=== PATIENT | female | born 1940 | race Caucasian/White ===

== ENCOUNTER 2017-09-13 14:53 | Emergency (ER) | payer MEDICARE ==
--- NOTE | 2017-09-13 15:10 | ER Document Report ---
ED General - General Chief Complaint: Facial Injury Stated Complaint: FALL CONTUSION Time Seen by Provider: 09/13/17 14:58 TRAVEL OUTSIDE OF THE [place] IN LAST 30 DAYS: No - HPI Notes: Patient is a 77-year-old female with a history of diabetes, CKD, hypertension who presents the ED complaining of left-sided head/eye pain, swelling, bruising s/p fall [employer]. Patient states that she was in the shower when she slipped and hit her head off of the corner of the bench. Patient states that she did not lose consciousness or have any nausea/vomiting. Patient states that she feels well otherwise and was ambulating without any difficulties. Spouse states that she is at her baseline with her mentation and her speech. Patient states that she she does not have a global headache, only pain localized to the area of concern. Patient is on Eliquis once daily. Denies any fever, neck pain, changes in speech/mentation/hearing, URI, sore throat, chest pain, palpitations , syncope, cough, shortness of breath, wheeze, dyspnea, abdominal pain, nausea/ vomiting/diarrhea, urinary retention, dysuria, hematuria, loss of control of bowel or bladder, numbness/tingling, saddle anesthesia, muscle paralysis/ weakness, or rash. - Related Data Allergies/Adverse Reactions: acetylcysteine [From Mucomyst] Allergy (Verified 09/13/17 15:33) albuterol Allergy (Verified 09/13/17 15:33) amoxicillin Allergy (Verified 09/13/17 15:33) budesonide Allergy (Verified 09/13/17 15:33) ciprofloxacin [From Cipro] Allergy (Verified 09/13/17 15:33) clotrimazole [From Lotrimin] Allergy (Verified 09/13/17 15:33) colesevelam [From WelChol] Allergy (Verified 09/13/17 15:34) erythromycin base Allergy (Verified 09/13/17 15:33) fluticasone [From Advair Diskus] Allergy (Verified 09/13/17 15:33) gabapentin Allergy (Verified 09/13/17 15:33) latex Allergy (Verified 09/13/17 15:33) levalbuterol [From Xopenex] Allergy (Verified 09/13/17 15:34) Penicillins Allergy (Verified 09/13/17 15:33) salmeterol [From Advair Diskus] Allergy (Verified 09/13/17 15:33) Home Medications: Current Home Medications Levothyroxine Sodium [Synthroid] 25 mcg PO DAILY 09/13/17 [History] Pregabalin [Lyrica] 150 mg PO DAILY 09/13/17 [History] Past Medical History - Social History Smoking Status: Never Smoker Chew tobacco use (# tins/day): No Drug Abuse: None Family History: Reviewed & Not Pertinent Patient has suicidal ideation: No Patient has homicidal ideation: No Renal/ Medical History: Denies: Hx Peritoneal Dialysis Review of Systems - Review of Systems Notes: REVIEW OF SYSTEMS: CONSTITUTIONAL : Denies fever, chills, or sweats. Denies recent illness. EENT: see hpi. CARDIOVASCULAR: Denies chest pain. Denies palpitations or racing or irregular heart beat. Denies ankle edema. RESPIRATORY: Denies cough, cold, or chest congestion. Denies shortness of breath, difficulty breathing, or wheezing. GASTROINTESTINAL: Denies abdominal pain or distention. Denies nausea, vomiting , or diarrhea. Denies blood in vomitus, stools, or per rectum. Denies black, tarry stools. Denies constipation. GENITOURINARY: Denies difficulty urinating, painful urination, burning, frequency, blood in urine, or discharge. MUSCULOSKELETAL: Denies back or neck pain or stiffness. Denies joint pain or swelling. SKIN: see hpi NEUROLOGICAL: Denies confusion or altered mental status. Denies passing out or loss of consciousness. Denies dizziness or lightheadedness. Denies headache. Denies weakness or paralysis or loss of use of either side. Denies problems with gait or speech. Denies sensory loss, numbness, or tingling. Denies seizures. PSYCHIATRIC: Denies anxiety or stress. Denies depression, suicidal ideation, or homicidal ideation. ALL OTHER SYSTEMS REVIEWED AND NEGATIVE. Dictation was performed using [employer] voice recognition software Physical Exam - Vital signs Vitals: Temp Pulse Resp BP Pulse Ox 97.9 F 91 18 126/74 H 95 09/13/17 15:32 09/13/17 15:32 09/13/17 15:32 09/13/17 15:32 09/13/17 15:32 Notes: PHYSICAL EXAMINATION: GENERAL: Well-appearing, well-nourished and in no acute distress. A&Ox4 HEAD: + swelling and ecchymosis noted to the left frontal cranial area. + tenderness to palp. EYES: Rt eye: Pupil equal round and reactive to light, extraocular movements intact, sclera anicteric, conjunctiva are normal. Lt eye completely swollen and ecchymotic with tenderness to palp of the superior orbit and eye lid. Unable to open to visualize left pupil. ENT: EAC clear b/l. TM's intact b/l without erythema, fluid, or perforation. Nares patent and without discharge. oropharynx clear without exudates. No tonsilar hypertrophy or erythema. Moist mucous membranes. No sinus tenderness. No hemotympanum/CSF discharge. NECK: Normal range of motion, supple without lymphadenopathy. No rigidity. No midline tenderness. Spurling negative. NEXUS negative. Chest: No flail chest. equal rise/fall. Non-tender LUNGS: Breath sounds clear to auscultation bilaterally and equal. No wheezes rales or rhonchi. HEART: Regular rate and rhythm without murmurs, rubs, gallops. ABDOMEN: Soft, nontender, nondistended abdomen. No guarding, no rebound. No masses appreciated. Normal bowel sounds present. No CVA tenderness bilaterally. Musculoskeletal: Ext b/l: FROM to passive/active. Strength 5+/5. No deficits noted. No bony tenderness of extremities. Back: FROM to passive/active. Strength 5+/5. No vertebral point tenderness, stepoffs, or deformities. No other bony tenderness or ecchymosis. Extremities: No cyanosis, clubbing, or edema b/l. Peripheral pulses 2+. Capillary refill less than 2 seconds. NEUROLOGICAL: NIH 0. MMSE intact. Cranial nerves grossly intact. Normal speech , normal gait. Normal sensory, motor exams. Reflexes 2+ b/l. ABDULKADIR's negative. Pronator drift negative. Heel/chandler, finger/nose wnl. PSYCH: Normal mood, normal affect. SKIN: Warm, Dry, normal turgor, no rashes or lesions noted. Course - Re-evaluation Re-evalutation: 09/13/17 16:44 Patient is an afebrile, well-hydrated, 77-year-old female who presents to the ED with a left forehead and periorbital hematoma. Vitals are stable. PE is otherwise unremarkable for any focal neurological deficits. see lab results. Dr. Perdomo also helped me evaluate the left eye. Tetracaine applied. PERRLA with subconjunctival hemorrhage noted to the left eye. Vision intact. CT scan of the head/face did not show any brain bleed or fracture. She was found to have mild proptosis when compared to the right eye on CT. Low suspicion for any acute glaucoma, temporal arteritis, meningitis, intracranial hemorrhage, ischemic stroke, retained corneal or lid foreign body, deep space infection including orbital cellulitis/abscess, acute glaucoma, penetrating globe injury, retinal detachment, compartment syndrome, or fracture at this time. Patient is aware that her condition can change from initial presentation and that she needs to monitor symptoms closely for any acute changes. Conservative measures for symptoms with ice packs and sleeping sitting up. Patient to stop her Eliquis 2 days. I did speak with Dr. Vilchis about the case who will see the patient tomorrow afternoon for further evaluation and management. Recheck with your PCM in 3-5 days as well. Return to the ED with any worsening/concerning symptoms otherwise as reviewed in discharge. Patient and spouse are in agreement. - Vital Signs Vital signs: Temp Pulse Resp BP Pulse Ox 97.9 F 91 18 126/74 H 95 09/13/17 15:32 09/13/17 15:32 09/13/17 15:32 09/13/17 15:32 09/13/17 15:32 - Laboratory Result Diagrams: 09/13/17 15:00 09/13/17 15:00 Laboratory results interpreted by me: 09/13/17 09/13/17 09/13/17 15:00 15:00 16:04 WBC 18.2 H Hgb 15.6 H RDW 16.3 H Seg Neutrophils % 80.1 H Lymphocytes % 12.8 L Absolute Neutrophils 14.6 H PT 16.2 H BUN 23 H Est GFR ( Amer) 51 L Est GFR (Non-Af Amer) 42 L Glucose 200 H Discharge - Discharge Clinical Impression: Periorbital hematoma of left eye Fall Qualifiers: Encounter type: initial encounter Qualified Code(s): W19.XXXA - Unspecified fall, initial encounter Condition: Stable Disposition: HOME, SELF-CARE Additional Instructions: keep eyes clean Avoid scratching/touching eyes Wash hands regularly Maintain adequate fluid intake tylenol/ibuprofen as needed STOP your eliquis x2 days and call your PCM You are to see Dr. Rush tomorrow after 1pm for a recheck* F/u: with your PCM in 3-5 days for a recheck Return to the ED with any worsening symptoms and/or development of fever, headache, changes in vision, eye pain, worsening eye redness, redness around the eyes, purulent discharge, sore throat, facial swelling, neck pain/stiffness , chest pain, palpitations, syncope, shortness of breath, trouble breathing, abdominal pain, n/v/d, blood in stool/urine, dysuria, or other worsening symptoms that are concerning to you. Forms: Elevated Blood Pressure Referrals: CARLA JOHNSON MD [Primary Care Provider] - Follow up in 3-5 days CASSI VILCHIS DO [ACTIVE STAFF] - Follow up tomorrow
[2017-09-13 15:32] LABS: ALANINE AMINOTRANSFERASE 22 U/L (9-52); ALBUMIN 4.3 g/dL (3.5-5.0); ALKALINE PHOSPHATASE 82 U/L (38-126); ANION GAP 13 (5-19); ASPARTATE AMINO TRANSFERASE 23 U/L (14-36); BILIRUBIN,DIRECT 0.4 mg/dL (0.0-0.4); BILIRUBIN,TOTAL 0.7 mg/dL (0.2-1.3); BLOOD UREA NITROGEN 23 mg/dL (7-20); CALCIUM 9.4 mg/dL (8.4-10.2); CARBON DIOXIDE 28 mmol/L (22-30); CHLORIDE 103 mmol/L (98-107); CREATININE RESULT 1.23 mg/dL (0.52-1.25); GLUCOSE 200 mg/dL (75-110); POTASSIUM 3.8 mmol/L (3.6-5.0); SODIUM 143.6 mmol/L (137-145); TOTAL PROTEIN 7.5 g/dL (6.3-8.2)
[2017-09-13 15:41] LABS: ABSOLUTE LYMPHOCYTES (AUTO) 2.3 10^3/uL (0.5-4.7); ABSOLUTE MONOCYTES (AUTO) 1.2 10^3/uL (0.1-1.4); ABSOLUTE NEUT (AUTO) 14.6 10^3/uL (1.7-8.2); BASOPHILS % (AUTO) 0.2 % (0-2); EOSINOPHILS % (AUTO) 0.1 % (0-6); HEMOGLOBIN 15.6 g/dL (12.0-15.5); HGB HCT DIFFERENCE -0.2; LYMPHOCYTES % (AUTO) 12.8 % (13-45); MEAN CORPUSCULAR HEMOGLOBIN 30.9 pg (27.0-33.4); MEAN CORPUSCULAR HGB CONC 33.1 g/dL (32.0-36.0); MEAN CORPUSCULAR VOLUME 94 fl (80-97); MONOCYTES % (AUTO) 6.8 % (3-13); RED BLOOD COUNT 5.03 10^6/uL (3.72-5.28); RED CELL DISTRIBUTION WIDTH 16.3 % (11.5-14.0); SEGMENTED NEUTROPHILS % (AUTO) 80.1 % (42-78); WHITE BLOOD COUNT 18.2 10^3/uL (4.0-10.5)
[2017-09-13 15:54] VITALS: BP 126/74
--- NOTE | 2017-09-13 16:12 | RADIOLOGY REPORT (SQ) ---
EXAM DESCRIPTION: CT HEAD WITHOUT COMPLETED DATE/TIME: 09/13/2017 3:49 pm REASON FOR STUDY: fall, head injury, swelling left frontal COMPARISON: None. TECHNIQUE: Axial images acquired through the brain without intravenous contrast. Images reviewed wi th bone, brain and subdural windows. Images stored on PACS. All CT scanners at this facility use dose modulation, iterative reconstruction, and/or weight based d osing when appropriate to reduce radiation dose to as low as reasonably achievable (ALARA). [facility]: Dose Right [facility]: CareDose [facility]: Dose Right [facility]: Teradose 4D [facility]: [employer] RADIATION DOSE: mGy. LIMITATIONS: None. FINDINGS: VENTRICLES: Normal size and contour. CEREBRUM: There appears to be a small, old left occipital infarct. There is no acute hemorrhage. Th ere is no midline shift or mass effect Extensive areas of low density in the white matter most likely chronic small vessel ischemic changes. CEREBELLUM: No masses. No hemorrhage. No alteration of density. No evidence for acute infarction. EXTRAAXIAL SPACES: No fluid collections. No masses. ORBITS AND GLOBE: No intra- or extraconal masses. Normal contour of globe without masses. CALVARIUM: No fracture. PARANASAL SINUSES: No fluid or mucosal thickening. SOFT TISSUES: Left periorbital soft tissue swelling. Large left frontal scalp hematoma. OTHER: No other significant finding. IMPRESSION: 1. No acute intracranial findings. 2. 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 3. Left scalp hematoma. EVIDENCE OF ACUTE STROKE: NO. COMMENT: Quality ID # [id number]: Final reports with documentation of one or more dose reduction techniques (e.g., Automated exposure control, adjustment of the mA and/or kV according to patient size, use of iterative reconstruction technique) TECHNICAL DOCUMENTATION: JOB ID: [id number] [employer]- All Rights Reserved
--- NOTE | 2017-09-13 16:23 | RADIOLOGY REPORT (SQ) ---
EXAM DESCRIPTION: CT FACIAL AREA WITHOUT COMPLETED DATE/TIME: 09/13/2017 3:52 pm REASON FOR STUDY: fall, left supraorbital and left lid hematoma/ecch COMPARISON: None. TECHNIQUE: Noncontrasted images through the facial bones and orbits windowed for bone and soft tissu e. Additional coronal and sagittal reconstructed images reviewed. All images stored on PACS. All CT scanners at this facility use dose modulation, iterative reconstruction, and/or weight based d osing when appropriate to reduce radiation dose to as low as reasonably achievable (ALARA). [facility]: Dose Right [facility]: CareDose [facility]: Dose Right [facility]: Teradose 4D [facility]: [employer] RADIATION DOSE: mGy. LIMITATIONS: None. FINDINGS: FACIAL BONES: No fracture or bone lesion. ORBITS: The orbits are intact. There is no fracture. The globes intact there is periorbital and pre septal soft tissue swelling on the left. PARANASAL SINUSES: Clear. No significant mucosal thickening, mass or fluid. No nasal polyps. Maxill ahmet sinus outlets are patent. SOFT TISSUES: No mass or edema. INFERIOR BRAIN: Limited view. No acute findings. OTHER: No other significant finding. IMPRESSION: Periorbital soft tissue swelling on the left with intact globe. No orbital fractures. TECHNICAL DOCUMENTATION: JOB ID: [id number] Quality ID # [id number]: Final reports with documentation of one or more dose reduction techniques (e.g., Au tomated exposure control, adjustment of the mA and/or kV according to patient size, use of iterative reconstruction technique) 2010 [employer]- All Rights Reserved
[2017-09-13 16:28] LABS: PROTHROMBIN TIME 16.2 SEC (11.4-15.4)
[2017-09-13 16:29] LABS: PARTIAL THROMBOPLASTIN TIME 32.9 SEC (23.5-35.8)
[2017-09-13] MEDS ORDERED: TETRACAINE HCL 0.5% OPH SOLN 2 ML OS ONE (16:38)
[2017-09-13] MEDS ORDERED: HYDROCODONE/ACETAMINOPHEN 5-325 MG TABLET PO ONE (17:01)
[2017-09-13] MEDS ORDERED: HYDROCODONE/ACETAMINOPHEN 5-325 MG 6 TAB/DSPK PO PRN (17:01)
== END 2017-09-13 17:31 | disposition home or self-care (01) ==
LOC: ER 14:53
DX: S00.12XA Contusion of left eyelid and periocular area, initial encounter (principal); S00.83XA Contusion of other part of head, initial encounter; W18.2XXA Fall in (into) shower or empty bathtub, initial encounter; Y92.002 Bathroom of unspecified non-institutional (private) residence as the place of occurrence of the external cause; H05.20 Unspecified exophthalmos; E11.9 Type 2 diabetes mellitus without complications; I10 Essential (primary) hypertension; Z79.01 Long term (current) use of anticoagulants; Z88.8 Allergy status to other drugs, medicaments and biological substances; Z88.0 Allergy status to penicillin; Z88.1 Allergy status to other antibiotic agents; Z88.3 Allergy status to other anti-infective agents; Z91.040 Latex allergy status; Z88.6 Allergy status to analgesic agent
CPT/HCPCS: 99284; 36415; 85025; 85610; 85730; 80053; 70450; 70486; A9270 ×2